=== PATIENT | female | born 1985 | race Two or more races ===

== ENCOUNTER 2022-04-24 21:29 | Emergency (ER) | payer MEDICAID ==
[~2022-04-24] VITALS: Ht 152.4 cm; Wt 80.0 kg
[2022-04-24] MEDS ORDERED: LORazepam 0.5 MG TAB PO ONE (21:45)
[2022-04-24 22:02] VITALS: BP 139/83
== END 2022-04-24 22:35 | disposition home or self-care (01) ==
LOC: EDBD 21:29 → ER 21:29
DX: F41.1 Generalized anxiety disorder (principal); Z88.0 Allergy status to penicillin

== ENCOUNTER 2024-07-16 01:11 | Emergency (ER) | payer OTHER, MEDICAID ==
[~2024-07-16] VITALS: Ht 152.4 cm; Wt 90.7 kg
--- NOTE | 2024-07-16 01:23 | ED.PDOC ---
HPI (NEURO) HPI Comments 38 year old female who came to ER via EMS for seizures. Patient has history of seizures, unknown if she is compliant there Keppra. Had multiple episodes of seizures earlier today. Patient was given Versed 10mg while en route to the ER. 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 Source: Emergency Med Personnel Mode of Arrival: EMS Severity: Moderate Dizziness/Weakness Severity: Unable to do activities Headache Severity: Moderate Timing: Hours Duration: Intermittent Prehospital treatment: Oxygen, Treatment Seizure Quality: Tonic-clonic Headache Quality: Throbbing, Aching Headache Location: Generalized Weakness Location: Generalized Numbness Location: Generalized Seizure Location: Generalized Onset: With light exertion Circumstances: Spontaneous Symptoms: Weakness Before: Normal During: LOC After: Confusion, Headache History of: Seizure Disorder Associated Signs and Symptoms: Weakness Past Medical History PAST MEDICAL HISTORY: Anxiety, Seizures Surgical History: Pt Confused 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: Pt 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 Family History Family History: Pt Confused Social History Smoker: Pt Confused Alcohol: Pt Confused Drugs: Pt Confused Lives In: Home Unable to Obtain due to: Other (Patient postictal) Physical Exam General Appearance: No Apparent Distress, Normal HEENT: Normal ENT Inspection, Pharynx Normal, TMs Normal Neck: Full Range of Motion, Non-Tender, Normal, Normal Inspection Respiratory: Chest Non-Tender, Lungs Clear, No Accessory Muscle Use, No Respiratory Distress, Normal Breath Sounds Cardiovascular: No Edema, No JVD, No Murmur, No Gallop, Normal Peripheral Pulses, Regular Rate/Rhythm Breast Exam: Deferred Gastrointestinal: No Organomegaly, Non Tender, No Pulsatile Mass, Normal Bowel Sounds, Soft Genitalia: Deferred Pelvic: Deferred Rectal: Deferred Extremities: No calf tenderness, Normal capillary refill, Normal inspection, Normal range of motion, Non-tender, No pedal edema Musculoskeletal : Apperance: Normal Neurologic: Alert, health information director II-XII nml as Tested, No Motor Deficits, Normal Affect, Normal Mood, No Sensory Deficits Cerebellar Function: Normal Reflexes: Normal Skin: Dry, Normal Color, Warm Lymphatic: No Adenopathy Was a procedure done? Was a procedure done?: Yes Sedation Sedation?: Yes Informed consent obtained: Yes Sedation start time: 03:05 Sedation end time: 03:23 Sedation total time: 18 mins Sedation provider statement: etomidate, propofol Intubation Indication: Respiratory Insufficiency, Altered Mental Status, Airway Protection Prep: Preoxygenation Pretreated with: Sedation Intubation Approach: Orotracheal Intubation size: cm (7.5) Informed consent obtained: Yes Risks/benefits/alt described: Yes Notes with the assist of a bougie, i was able to successfully intubate on the 1st pass. a 7.5ET was passed over the bougie, condensations were seen with each breath. ET placed at 22cm at the lip. bougie removed. CO2 detector color changed. bilateral BS equal. no epigastric gurgling. O2 saturation in the high 90%. cxr and abg ordered. vent setting AC 14, tv 400, peep 5, 100% FiO2. no complications Differential Diagnosis (SZ) Seizure: Psychogenic Seizure, Alcohol Withdrawl, Anticonvulsant Withdrawl, Closed Head Injury, CVA/TIA, Drug Ingestion, Hypocalcemia, Hypoglycemia, Hyponatremia, Hypoxemia, Idiopathic, Mass Lesion, Meningitis, Syncope, Encephalopathy, Epilepsy-Break Through, Epilepsy-Status CVA: CVA, Delirium Tremens, DKA, Drug Overdose, Electrolyte Imbalance, Hypoglycemia, Hypoxemia, Mass Lesion, SAH X-Ray, Labs, Meds, VS Vital Signs Date Time Temp Pulse Resp B/P (MAP) Pulse Ox O2 Delivery O2 Flow Rate FiO2 07/16/24 01:39 76 15 134/82 (99) 91 07/16/24 01:17 98.4 76 21 140/90 (107) 94 98.4 Lab Test 07/16/24 02:42 07/16/24 01:26 Range/Units Urine Opiates Screen Pending Urine Fentanyl Screen Pending Urine Barbiturates Screen Pending Urine Phencyclidine Screen Pending Urine Amphetamines Screen Pending Urine Benzodiazepines Screen Pending Urine Cocaine Screen Pending Urine Cannabinoids Screen Pending Sodium Level 133 L 136-145 mmol/L Potassium Level 2.7 L 3.5-5.1 mmol/L Chloride Level 93 L 98-107 mmol/L Carbon Dioxide Level 17 L 20-31 mmol/L Anion Gap 23 H 5-15 Blood Urea Nitrogen < 5 L 9-23 mg/dL Creatinine 0.61 0.550-1.02 mg/dL Glomerular Filtration Rate Calc 116 >90 mL/min BUN/Creatinine Ratio 8.2 L 10.0-20.0 Serum Glucose 138 H 74-106 mg/dL Calcium Level 9.8 8.7-10.4 mg/dL Total Bilirubin 3.9 H 0.2-1.0 mg/dL Aspartate Amino Transferase (AST) 286 H 13-40 U/L Alanine Aminotransferase (ALT) 75 H 7-40 U/L Alkaline Phosphatase 154 H 46-116 U/L Total Protein 8.2 5.7-8.2 g/dL Albumin 4.7 3.2-4.8 g/dL Plasma/Serum Blood Alcohol Pending Current Medications Medications (Trade) Dose Ordered Sig/Shira Route Start Time Stop Time Status Last Admin Potassium Chloride 50 ml @ 25 mls/hr ONCE ONCE IV 07/16/24 02:15 07/16/24 04:14 07/16/24 02:51 Sodium Chloride 100 ml @ 50 mls/hr ONCE ONCE IV 07/16/24 02:15 07/16/24 04:14 07/16/24 02:51 Time of 1ST Reevaluation: 01:21 Reevaluation 1ST: Unchanged Time of 2ND Reevaluation: 02:14 Reevaluation 2ND: Unchanged ( came to bedside reports she hit her head and right shoulder) Patient Education/Counseling: Other (Patient postictal), Pt Unresponsive Family Education/Counseling: No Family Present Additional Information Previous medical encounters reviewed: Apr 2022: Anxiety Reaction 2 Alcohol The following tests were ordered, and results were reviewed by me: Additional Information was gathered from interviewing the following independent historians: I reviewed and agreed with the following test results read by other providers: I discussed treatment and results with medical personnel and: Patient Comprehensive systems review obtained and negative except for what is stated in the HPI. reports that pt drinks all the time. however, he had not bought her any alcohol in days. yesterday at 8pm, he heard the dogs bark, found her on the floor. pt refused to come in. tonight, she later had a seizure and he called 911. pt has a large subdural bleed with a shift. she will be intubated for airway protection and transferred to a higher level of care facility, Dr Porter, who accepted the transfer Departure 1 Departure Time of Disposition: 03:13 Impression: Primary Impression: Subdural bleeding Additional Impressions: Altered mental state Qualified Codes: R40.0 - Somnolence Seizure Alcoholism Disposition: 02 SHORT TERM HOSPITAL Condition: Critical Discharged With: Spouse Critical Care Note Critical Care Time?: Yes (55 min-critical care time only) Critical care comment: Due to concerns for patients condition deteriorating, the care required my highest level of attention and readiness to intervene. I assessed the patient, reviewed the medical records, ordered the appropriate tests and treatments, then reassessed for results and responsiveness. I communicated with medical personnel and consultants and formulated a plan of care. Total critical care time excludes any procedures Stability Stability form required: No Heart Score Heart Score: Heart Score Response (Comments) Value History N/A 0 EKG N/A 0 Age N/A 0 Risk Factors N/A 0 Troponin N/A 0 Total 0 I personally scribed for MESFIN MERCADO MD ([email or web address]) on 07/16/24 at 01:23. Electronically submitted by Clayton Vaughn ([email or web address]). I personally scribed for MESFIN MERCADO MD ([email or web address]) on 07/16/24 at 01:24. Electronically submitted by Clayton Vaughn ([email or web address]). I personally scribed for MESFIN MERCADO MD ([email or web address]) on 07/16/24 at 01:30. Electronically submitted by Clayton Vaughn ([email or web address]). MESFIN MERCADO MD Jul 16, 2024 01:23
[2024-07-16 01:51] LABS: Albumin 4.7 g/dL (3.2-4.8); Anion Gap 23 (5-15); Calcium 9.8 mg/dL (8.7-10.4); Total Protein 8.2 g/dL (5.7-8.2)
[2024-07-16 01:54] LABS: Alanine Aminotransferase 75 U/L (7-40); Alkaline Phosphatase 154 U/L (46-116); Aspartate Aminotransferase 286 U/L (13-40); BUN/Creatinine Ratio 8.2 (10.0-20.0); Bilirubin, Total 3.9 mg/dL (0.2-1.0); Blood Urea Nitrogen < 5 mg/dL (9-23); Carbon Dioxide 17 mmol/L (20-31); Chloride 93 mmol/L (98-107); Glucose 138 mg/dL (74-106); Potassium 2.7 mmol/L (3.5-5.1); Sodium 133 mmol/L (136-145)
[2024-07-16] MEDS: POTASSIUM CHL 20MEQ/50ML 50 ML IV ONE (02:51)
[2024-07-16] MEDS: SODIUM CHL 0.9% 100 ML IV ONE (02:51)
[2024-07-16] MEDS: ETOMIDATE (2MG/ML) 20ML VIAL IV ONE ×2 (03:41)
[2024-07-16] MEDS: PROPOFOL 100 ML IV ONE (03:41)
[2024-07-16 03:44] LABS: Amphetamine Screen, Urine Neg (NEGATIVE); Barbiturate Scree,Urine Neg (NEGATIVE); Benzodiazephine Screen, Urine Pos (NEGATIVE); Cannabinoid Screen, Urine Neg (NEGATIVE); Cocaine Screen, Urine Neg (NEGATIVE); Opiate Scree,Urine Neg (NEGATIVE); Phencyclidine Screen, Urine Neg (NEGATIVE)
[2024-07-16] MEDS: PROPOFOL 100 ML IV SCH (03:54)
[2024-07-16] MEDS: levETIRAcetam 1000 mg/100ml 100 ML IV ONE (04:00)
[2024-07-16 04:12] LABS: Base Excess -1.2 mmol/L (-2.0-3.0)
[2024-07-16 04:14] LABS: INR 1.39 (0.9-1.15); Partial Thromboplastin Time 27.8 SEC (24.5-34.5); Prothrombin Time 14.3 sec (9.3-11.8)
[2024-07-16] MEDS: LABETALOL HCL 20 MG/4 ML VL IV PRN (04:22)
--- NOTE | 2024-07-16 04:26 | DVH ---
Examination: CXRP CLINICAL INDICATION: COMPARISON: None. TECHNIQUE: Frontal radiograph of the chest was obtained. FINDINGS: Limited evaluation as the patient is in rotation. Lungs are clear and well expanded with no pulmonary infiltrate or pleural effusion. There is no pneumothorax. Endotracheal tube noted with its distal end located approximately 4.2 cm proximal to the stiven in ap propriate position. No evidence of cardiomegaly. Nasogastric tube noted with its distal end in the stomach in appropriate position. No acute osseous abnormality is seen. IMPRESSION: 1. No acute cardiopulmonary disease is seen. 2. Endotracheal tube noted with its distal end located approximately 4.2 cm proximal to the stiven i n appropriate position. 3. Nasogastric tube noted with its distal end in the stomach in appropriate position. Electronically Signed 07/16/2024 04:25 Lissy Vyas
[2024-07-16 05:00] VITALS: PULSE 82; RESP 14; TEMP 98.3; O2SAT 100
[2024-07-16 05:01] VITALS: BP 143/93
--- NOTE | 2024-07-16 05:12 | DVH ---
Critical Findings Examination: HWOCT CLINICAL INDICATION: injury COMPARISON: None. CONTRAST USED: None. TECHNICAL: The examination was performed obtaining 5 mm slices without contrast. Multiplanar reconstr uctions were obtained. CT scan done according to ALARA (As Low As Reasonably Achievable). FINDINGS: SUPRATENTORIAL BRAIN: Cerebral Hemispheres: An acute hyperdense subdural hematoma with few hypodensities within is seen sid ng the left cerebral convexity measuring approximately 22 mm in maximum thickness. It is causing mass -effect in the form of compression of the underlying brain parenchyma, effacement of the sulci, effac ement of the left lateral, third ventricles. Right sided midline shift is seen measuring 17 mm. Righ t sided subfalcine herniation is seen. Left uncal,, descending transtentorial herniation is seen. dil atation of the occipital horn dilatation of the occipital, temporal horns of the right lateral ventri irma is seen with minimal transependymal CSF both suggestive of obstructive hydrocephalus. No obvious tonsillar herniation is seen in present study. Acute subdural hemorrhage of maximum thickn ess 6 mm is seen on the left side of the falx. Diffuse cerebral edema is seen. Periventricular White Matter/Basal Ganglia: No abnormal areas of altered attenuation within the periv entricular white matter or basal ganglia. POSTERIOR FOSSA: The brainstem is normal and the visualized cerebellar hemispheres are unremarkable. VENTRICULAR SYSTEM: As described above. SKULL BASE AND PARASELLAR REGION: The skull base is normal with no parasellar masses or abnormalities identified. CALVARIUM AND SCALP REGION: Scalp hematoma is seen along the right frontoparietal convexity. No obvio us acute fracture seen. PARANASAL SINUSES: No significant inflammatory changes are identified in the paranasal sinuses. IMPRESSION: 1. An acute hyperdense subdural haematoma with few hypodensities within is seen along the left cereb ral convexity. It is causing mass-effect in the form of compression of the underlying brain parenchym a, effacement of the sulci, effacement of the left lateral, third ventricles. 2. Right sided midline shift is seen measuring 17 mm. 3. Right sided subfalcine herniation is seen. 4. Left uncal, descending transtentorial herniation is seen. 5. Dilatation of the occipital horn dilatation of the occipital, temporal horns of the right lateral ventricle is seen with minimal transependymal CSF both suggestive of obstructive hydrocephalus. 6. No obvious tonsillar herniation is seen in present study. 7. Acute subdural hemorrhage of maximum thickness 6 mm is seen on the left side of the falx. 8. Diffuse cerebral edema is seen. 9. Scalp hematoma is seen along the right frontoparietal convexity. No obvious acute fracture seen. 10. Suggest clinical correlation, urgent surgical consultation and follow-up as clinically deemed ne cessary. Electronically Signed 07/16/2024 05:11 Lissy Vyas
--- NOTE | 2024-07-16 06:16 | ECG ---
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
== END 2024-07-16 05:22 | disposition short-term general hospital (02) ==
LOC: ER 01:11 → EDBD 01:11 → ER 05:22
DX: I62.01 Nontraumatic acute subdural hemorrhage (principal); R41.82 Altered mental status, unspecified; F41.9 Anxiety disorder, unspecified; G40.909 Epilepsy, unspecified, not intractable, without status epilepticus
CPT/HCPCS: 31500; 36415; 36600; 70450; 71045; 80053; 80307; 80320; 82805; 85610; 85730; 87070; 87205; 93005; 96365; 96375; 99291; J1953; J2704; J3480; 96367